=== PATIENT | female | born 2000 | race Two or more races ===

== ENCOUNTER 2020-09-16 12:30 | Emergency (ER) | payer OTHER ==
[~2020-09-16] VITALS: Ht 165.1 cm; Wt 85.7 kg
[2020-09-16] MEDS ORDERED: CHILDREN'S ASPI81 MG PO (12:41)
[2020-09-16] MEDS ORDERED: IRO-PLEX LIQUI120 ML PO (12:42)
[2020-09-16] MEDS ORDERED: IRON236 MG PO (12:42)
== END 2020-09-16 15:15 | disposition home or self-care (01) ==
LOC: ER 12:30
DX: O99.013 Anemia complicating pregnancy, third trimester (principal); D64.89 Other specified anemias; Z11.52 Encounter for screening for COVID-19; Z34.03 Encounter for supervision of normal first pregnancy, third trimester

== ENCOUNTER → 2020-10-31 | Outpatient (CLI) | payer OTHER ==
[~2020-10-31] MED LIST: CHILDREN'S ASPI81 MG PO; IRO-PLEX LIQUI120 ML PO; IRON236 MG PO; PRENATAL TABLE1 EAC1 PO
== END | disposition left against medical advice (07) ==
LOC: OBS/DEL 21:58
PROVIDERS: ATTEND Specialist
DX: O26.893 Other specified pregnancy related conditions, third trimester (principal); R10.2 Pelvic and perineal pain; Z3A.37 37 weeks gestation of pregnancy

== ENCOUNTER 2020-12-16 08:00 | Outpatient (CLI) | payer OTHER | END 2020-12-16 08:30 | disposition home or self-care (01) | LOC: PPH VACUNA 08:00 | DX: Z23 Encounter for immunization (principal) ==

== ENCOUNTER 2021-01-06 08:00 | Outpatient (CLI) | payer OTHER | END 2021-01-06 08:30 | disposition home or self-care (01) | LOC: PPH VACUNA 08:00 | PROVIDERS: ATTEND Emergency Medicine Pediatric Emergency Medicine | DX: Z23 Encounter for immunization (principal) ==

== ENCOUNTER 2021-02-16 19:31 | Emergency (ER) | payer OTHER ==
[~2021-02-16] VITALS: Ht 162.6 cm; Wt 74.8 kg
[2021-02-16] MEDS ORDERED: MACRODANTIN50 MG PO (23:16)
== END 2021-02-17 00:17 | disposition home or self-care (01) ==
LOC: ER 19:31
DX: N93.8 Other specified abnormal uterine and vaginal bleeding (principal); Z03.818 Encounter for observation for suspected exposure to other biological agents ruled out